=== PATIENT | male | born 1950 | race Caucasian/White ===

== ENCOUNTER 2018-04-17 22:56 | Emergency (ER) | payer OTHER ==
[2018-04-18] MEDS: HYDROCODONE/APAP (5/325) TAB PO (01:48)
[2018-04-18] MEDS: IBUPROFEN 600 MG TAB PO (01:51)
== END 2018-04-18 04:06 | disposition home or self-care (01) ==
LOC: FTE 22:56
DX: M25.561 Pain in right knee (principal)
CPT/HCPCS: 29505; 73562; 99283-25